=== PATIENT | male | born 1960 ===

== ENCOUNTER → 2017-06-23 | Emergency (ER) | payer OTHER ==
[~2017-06-23] VITALS: Ht 180.3 cm; Wt 83.5 kg
[~2017-06-23] MED LIST: ATIVAN2 M1; COUMADIN2.5 MG; PROTONIX40 M1
== END | disposition home or self-care (01) ==
LOC: ER 14:28
DX: I70.298 Other atherosclerosis of native arteries of extremities, other extremity (principal); M79.605 Pain in left leg; M79.604 Pain in right leg

== ENCOUNTER 2017-10-01 05:45 | Day surgery (SDC) | payer OTHER ==
[~2017-10-01 05:45] MED LIST changes: +XARELTO20 MG PO
== END 2017-10-01 11:00 | disposition home or self-care (01) ==
LOC: CIR.AMB 05:45
DX: C19 Malignant neoplasm of rectosigmoid junction (principal); K92.1 Melena
CPT/HCPCS: 36561; C1751